=== PATIENT | female | born 1985 | race Caucasian/White ===

== ENCOUNTER 2016-12-17 13:15 | Emergency (ER) | payer MEDICAID, OTHER ==
[2016-12-17 13:27] VITALS: BP 131/59; PULSE 84; RESP 16; TEMP 97.9; O2SAT 99
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
[2016-12-17] MEDS ORDERED: IBUPROFEN 200 MG TAB PO ONE (13:48)
[2016-12-17] MEDS ORDERED: HYDROCOD/APAP 5/325 PREPACK#6 BTL TAKEHOME ONE (14:51)
== END 2016-12-17 15:07 | disposition home or self-care (01) ==
DX: S63.502A Unspecified sprain of left wrist, initial encounter (principal); J45.909 Unspecified asthma, uncomplicated; F17.200 Nicotine dependence, unspecified, uncomplicated; V18.0XXA Pedal cycle driver injured in noncollision transport accident in nontraffic accident, initial encounter; Y92.410 Unspecified street and highway as the place of occurrence of the external cause; Y99.8 Other external cause status; Y93.89 Activity, other specified
CPT/HCPCS: L3908

== ENCOUNTER 2017-06-09 14:37 | Emergency (ER) | payer MEDICAID ==
[2017-06-09 14:46] VITALS: TEMP 98.1
--- NOTE | 2017-06-09 15:18 | EDPHY ---
HPI/HX/ROS/PE/MDM Narrative: CHIEF COMPLAINT: "I can't get rid of this cough" HPI: The patient is a 31 y/o female with a history of asthma complaining of a persistent cough for the last month. She initially developed cold symptoms that led to a productive cough. She has associated episodes of post-tussive emesis and complaining of pain with breathing. She has taken Mucinex twice for this without resolution. Her symptoms are causing difficulty sleeping and she is now unable to work. She denies fever, abdominal pain, diarrhea. She is also requesting an x-ray of her left wrist due to continuing pain from an injury several months ago. REVIEW OF SYSTEMS: Aside from elements discussed in the HPI, a comprehensive 10-point review of systems was reviewed and is negative. PMH: Asthma SOCIAL HISTORY: Single. Transient. Lives in [place] Prior medical records reviewed including ED visit 12/17/16 for wrist injury. PHYSICAL EXAM: General:Patient is alert, in no acute distress. ENT:Eyes are normal to inspection. ENT inspection normal. Neck: Normal inspection. Full range of motion. Respiratory:No respiratory distress. Breath sounds normal bilaterally. Cardiovascular: Regular rate and rhythm. Strong peripheral pulses. Normal cap refill. Abdomen:The abdomen is nontender to palpation. There are no peritoneal signs. Back: Normal to inspection. No tenderness to palpation. Skin: Normal color. No rash. Warm and dry. Extremities: Normal appearance. Full range of motion. Neuro: Oriented x3. Normal motor function. Normal sensory function. ED Course: This is a transient 31 y/o female with a history of asthma who presents with a 1 -month history of a productive cough. She is well-appearing on exam and has normal breath sounds. She is afebrile here. Plan for chest x-ray and left wrist x-ray at her request. Chest x-ray shows bronchitis. Wrist x-ray shows no acute fracture. Reassessed patient and discussed work up. She will be discharged with scripts for azithromycin and albuterol for bronchitis. Referred to [facility] for follow up. Return precautions discussed. She agrees with discharge plan. - Data Points Imaging Results: Imaging Impressions Chest X-Ray 06/09/17 15:03 Impression: Prominence of perihilar interstitial markings and peribronchial cuffing. Findings are nonspecific but can be seen with bronchitis, reactive airway disease, or viral process. Wrist X-Ray 06/09/17 15:21 Impression: Normal left wrist series. Imaging: I viewed and interpreted images myself Medications Given: Discontinued Medications Albuterol Sulfate (Proventil Inh Prepack) 1 mdi BRIANA KOO ONE Stop: 06/09/17 15:44 Last Admin: 06/09/17 16:36 Dose: 1 mdi General Initial Vital Signs: Initial Vital Signs Temperature (C) 36.7 C 06/09/17 14:44 Heart Rate 87 06/09/17 14:44 Respiratory Rate 18 06/09/17 14:44 Blood Pressure 95/62 L 06/09/17 14:44 O2 Sat (%) 97 06/09/17 14:44 O2 Delivery Mode Room Air Allergies/Adverse Reactions: Penicillins Allergy (Unknown, Verified 12/17/16 13:24) Home Medications: Medication Instructions Recorded AZITHROMYCIN [Z-PACK] 250 mg PO DAILY 5 Days packet 06/09/17 Departure - Departure Disposition: Home, Routine, Self-Care Clinical Impression: Bronchitis, Left wrist pain Condition: Good Instructions: Albuterol (By breathing), Azithromycin (By mouth), Wrist Injury ( ED), Acute Bronchitis (ED) Additional Instructions: 1. Take azithromycin as prescribed. Be sure to complete the entire prescription. 2. Use albuterol inhaler as prescribed when needed for cough. 3. Take Tylenol or ibuprofen as directed on the packaging as needed for wrist pain over the next few days. 4. Follow up with your primary care provider for unimproved symptoms over the next week. 5. Return to the ED for worsening of condition. Referrals: [facility],. [Clinic] - As per Instructions Prescriptions: AZITHROMYCIN [Z-PACK] 250 mg PO DAILY 5 Days packet Report Scribed for: Ryan Willams Report Scribed by: Yen Florian Date of Report: 06/09/17 Time of Report: 15:02 Physician Review and Approval Statement: Portions of this note were transcribed by an ED scribe. I personally performed the history, physical exam, and medical decision making; and confirm the accuracy of the information in the transcribed note.
[2017-06-09] MEDS ORDERED: ALBUTEROL INH PREPACK MDI TAKEHOME ONE (15:43)
[2017-06-09 16:35] VITALS: BP 114/88; PULSE 63; RESP 16; O2SAT 99
== END 2017-06-09 16:47 | disposition home or self-care (01) ==
DX: J20.9 Acute bronchitis, unspecified (principal); M25.532 Pain in left wrist; J45.909 Unspecified asthma, uncomplicated

== ENCOUNTER 2017-06-10 09:41 | Emergency (ER) | payer MEDICAID ==
[2017-06-10 09:47] VITALS: BP 123/94; PULSE 87; RESP 16; TEMP 98.1; O2SAT 98
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
== END 2017-06-10 10:51 | disposition home or self-care (01) ==
DX: F32.9 Major depressive disorder, single episode, unspecified (principal); F17.200 Nicotine dependence, unspecified, uncomplicated

== ENCOUNTER 2017-06-18 03:17 | Emergency (ER) | payer MEDICAID ==
[2017-06-18 03:21] VITALS: TEMP 98.2
--- NOTE | 2017-06-18 03:35 | EDPHY ---
H & P Time Seen by Provider: 06/18/17 03:25 HPI/ROS: Chief Complaint: Narcotic withdrawal HPI: 31-year-old female who is addicted to opioids is presenting with withdrawal symptoms. Patient states she last used heroin 2 days ago. She has got bilateral arm and leg cramping. Some abdominal cramping. Some nausea and vomiting. No diarrhea. No chest pain or shortness of breath. No fevers or chills. Patient states she cannot sleep. She drink alcohol for the 1st time in the in the few years just to try to help her sleep. No cough. No blood or coffee-ground in her vomit. No dark tarry stools. She does not use benzodiazepines. ROS: 10 point Review of Systems is negative except as noted in the HPI. PMH: Denies Social History: Occasional smoking, rare alcohol, chronic heroin use Family History: non-contributory Physical Exam: Gen: Awake, Alert, anxious appearing HEENT: Nose: no rhinorrhea Eyes: PERRLA, EOMI Mouth: Moist mucosa Neck: Supple, no JVD Chest: nontender, lungs clear to auscultation Heart: S1, S2 normal, no murmur Abd: Soft, non-tender, no guarding Back: no CVA tenderness, no midline tenderness Ext: no edema, non-tender Skin: no rash Neuro: CN II-XII intact, Sensation grossly intact, Strength 5/5 in bilateral upper and lower extremities - Personal History LMP (Females 10-55): 8-14 Days Ago Current Tetanus Diphtheria and Acellular Pertussis (TDAP): Unsure - Medical/Surgical History Hx Asthma: Yes Hx Chronic Respiratory Disease: No Hx Diabetes: No Hx Cardiac Disease: No Hx Renal Disease: No Hx Cirrhosis: No Hx Alcoholism: No Hx HIV/AIDS: No Hx Splenectomy or Spleen Trauma: No Other PMH: depression, bi-polar, asthma, hx drug abuse - Social History Smoking Status: Current every day smoker Constitutional: Initial Vital Signs Temperature (C) 36.8 C 06/18/17 03:19 Heart Rate 81 06/18/17 03:19 Respiratory Rate 20 06/18/17 03:19 Blood Pressure 110/80 06/18/17 03:19 O2 Sat (%) 96 06/18/17 03:19 Allergies/Adverse Reactions: Penicillins Allergy (Unknown, Verified 06/10/17 09:43) Home Medications: Medication Instructions Recorded AZITHROMYCIN [Z-PACK] 250 mg PO DAILY 5 Days packet 06/09/17 Medical Decision Making ED Course/Re-evaluation: 31-year-old woman in acute narcotic withdrawal. She has not been using any benzodiazepines. Last used heroin 2 days ago. She has a benign exam. She is feeling improved after clonidine here. [facility] Center with a Librium prepack. - Data Points Medications Given: Discontinued Medications Clonidine (Catapres) 0.2 mg PO EDNOW ONE Stop: 06/18/17 03:36 Last Admin: 06/18/17 03:38 Dose: 0.2 mg Departure - Departure Disposition: Home, Routine, Self-Care Clinical Impression: Narcotic withdrawal Condition: Good Instructions: Opioid Withdrawal (ED), Chlordiazepoxide (By mouth) Referrals: DR CLAUDIA [Other] - As per Instructions
[2017-06-18] MEDS ORDERED: CHLORDIAZEPOXIDE 25MG PREPK#6 BTL TAKEHOME ONE (04:11)
[2017-06-18 04:33] VITALS: BP 124/88; PULSE 79; RESP 18; O2SAT 94
== END 2017-06-18 04:31 | disposition home or self-care (01) ==
DX: F11.23 Opioid dependence with withdrawal (principal); J45.909 Unspecified asthma, uncomplicated; F17.200 Nicotine dependence, unspecified, uncomplicated

== ENCOUNTER 2017-10-27 20:11 | Emergency (ER) | payer MEDICAID ==
[2017-10-27] MEDS ORDERED: NS 1,000 ML IV ONE (20:38)
[2017-10-27 20:45] LABS: PLATELET COUNT 251 10^3/uL (150-400)
[2017-10-27] MEDS ORDERED: KETOROLAC 30 MG/1 ML SDV IVP ONE (20:52)
[2017-10-27] MEDS ORDERED: ONDANSETRON 4 MG/2 ML VIAL IVP ONE (20:52)
--- NOTE | 2017-10-27 20:52 | EDPHY ---
HPI/HX/ROS/PE/MDM Narrative: CHIEF COMPLAINT: Diarrhea, abdominal cramping, vaginal spotting HISTORY OF PRESENT ILLNESS: The patient is a 32 y/o female with a history of tubal ligation and hepatitis c complaining of 3 days of diarrhea and abdominal pain. She used heroin for several months but stopped using 2 months ago, after her hepatitis diagnosis. While using heroin, she experienced abdominal pain which resolved after withdrawing from heroin. Since then, she has had increased vaginal spotting. She has had some abdominal cramping and diarrhea for the past 3 days. Diarrhea is accompanied by vomiting. Diarrhea is green and watery. Yesterday she had many episodes of diarrhea and vomiting but today she has only had one episode. She has associated cold sweats, frequent urination, and a dull ache in her lower back. She denies fever or any other associated symptoms. She denies any opiate use in the past 2 months, recent international travel, recent bad food, or any other precipitating causes. No fever, chest pain, shortness of breath, palpitations, urinary complaints, headache, lightheadedness. REVIEW OF SYSTEMS: Aside from elements discussed in the HPI, a comprehensive 10-point review of systems was reviewed and is negative. PAST MEDICAL HISTORY: Hepatitis C, heroin abuse, scoliosis, asthma, tubal ligation, ovarian cyst SOCIAL HISTORY: Works in a restaurant, medicaid patient, homeless VITAL SIGNS: Reviewed by me GENERAL: Well-developed, well-nourished, resting comfortably in no respiratory distress. HEENT: Atraumatic. Eyes: No icterus, no injection. Mouth: moist mucous membranes. No erythema or lesions. Neck: supple with no adenopathy. LUNGS: Clear to auscultation bilaterally, no wheezes, rhonchi or rales. CARDIAC: Regular rate and rhythm, no rubs, murmurs or gallops. ABDOMEN: Diffuse tenderness worse in right upper quadrant and left lower quadrant. No guarding or rebound. Soft, nondistended, bowel sounds normal. BACK: No CVA tenderness. EXTREMITIES: No trauma. No edema. Range of motion is normal throughout. NEURO: Alert and oriented, grossly nonfocal. SKIN: Warm and dry, no rash. PSYCHIATRIC: Normal mentation, no agitation. ED Course: The patient presents with abdominal pain, diarrhea, vomiting, and vaginal spotting. Her exam indicates diffuse abdominal tenderness, worse in lower left quadrant and upper right quadrant. Plan for CBC, basic metabolic panel, beta HCG , lipase, liver function, coag, stool pathogen analysis, and urinalysis. 21:15- Labs are not indicative of an etiology at this point. Plan for CT to further evaluate. 22:00- CT shows dilation of left uterine ovarian veins, consistent with possible pelvic congestion. Plan for ultrasound for further evaluation of etiology of symptoms. Ultrasound results demonstrate no ovarian cysts, free fluid, torsion, or other etiologies of her pelvic pain. I feel she can follow up with a primary care provider for further evaluation and treatment. She agrees to this course of action. Patient was given referral to director of annual giving on-call, Dr. Franki escamilla. She was also instructed to return to the emergency department to provide stool as soon as possible. MDM: The differential diagnosis for the patient's abdominal pain was considered including but not limited to ovarian cyst, ovarian torsion, urinary tract infection, gastroenteritis, colitis, diverticulitis. - Data Points Laboratory Results: Laboratory Results 10/27/17 20:30 10/27/17 20:30 Medications Given: Discontinued Medications Sodium Chloride (Ns) 1,000 mls @ 0 mls/hr IV EDNOW ONE; Wide Open PRN Reason: Protocol Stop: 10/27/17 20:39 Last Admin: 10/27/17 20:51 Dose: 1,000 mls Ketorolac Tromethamine (Toradol) 30 mg IVP EDNOW ONE Stop: 10/27/17 20:53 Last Admin: 10/27/17 20:56 Dose: 30 mg Ondansetron HCl (Zofran) 4 mg IVP EDNOW ONE Stop: 10/27/17 20:53 Last Admin: 10/27/17 20:56 Dose: 4 mg General Time Seen by Provider: 10/27/17 20:29 Initial Vital Signs: Initial Vital Signs Temperature (C) 36.5 C 10/27/17 20:21 Heart Rate 80 10/27/17 20:21 Respiratory Rate 18 10/27/17 20:21 Blood Pressure 115/81 H 10/27/17 20:21 O2 Sat (%) 98 10/27/17 20:21 O2 Delivery Mode Room Air Allergies/Adverse Reactions: Penicillins Allergy (Unknown, Verified 10/27/17 20:23) Home Medications: Medication Instructions Recorded NK [No Known Home Meds] 10/27/17 Departure - Departure Disposition: Home, Routine, Self-Care Clinical Impression: Vaginal spotting, Pelvic congestion syndrome Abdominal pain Qualifiers: Abdominal location: left lower quadrant Qualified Code(s): R10.32 - Left lower quadrant pain Diarrhea Qualifiers: Diarrhea type: unspecified type Qualified Code(s): R19.7 - Diarrhea, unspecified Vomiting Qualifiers: Vomiting type: unspecified Vomiting Intractability: non-intractable Nausea presence: with nausea Qualified Code(s): R11.2 - Nausea with vomiting, unspecified Condition: Good Instructions: Acute Nausea and Vomiting (ED), Acute Diarrhea (ED), Pelvic Pain in Women (ED), Abdominal Pain (ED) Additional Instructions: 1. Follow up with your primary care provider in 1 to 2 days. If you do not have a primary care provider please contact [facility] to be seen there. 2. Return to the emergency department for worsening of condition. 3. Please provide a stool sample to the lab at [facility] when you are able. 4. Your pelvic pain may be related to pelvic venous congestion. Please follow up with OBGYN. Referrals: JOE GOMEZ [Other] - As per Instructions [facility],. [Clinic] - As per Instructions Isaac Snyder MD [Medical Doctor] - As per Instructions Report Scribed for: Jyotsna Hess Report Scribed by: Radha Mclain Date of Report: 10/27/17 Time of Report: 22:19 Physician Review and Approval Statement: Portions of this note were transcribed by a medical assisting program director. I personally performed a history, physical exam, medical decision making, and confirmed accuracy of information the transcribed note.
[2017-10-27 21:08] LABS: INR 1.1 (0.83-1.16); PROTIME(PATIENT) 14.4 SEC (12.0-15.0)
[2017-10-27] MEDS ORDERED: IOPAMIDOL (ISOVUE-300) 100 ML BTL ONE (21:21)
[2017-10-28 00:07] VITALS: BP 118/73
== END 2017-10-28 00:06 | disposition home or self-care (01) ==
DX: R19.7 Diarrhea, unspecified (principal); R10.32 Left lower quadrant pain; R11.2 Nausea with vomiting, unspecified; N93.9 Abnormal uterine and vaginal bleeding, unspecified; E86.9 Volume depletion, unspecified; J45.909 Unspecified asthma, uncomplicated; Z98.51 Tubal ligation status
CPT/HCPCS: 96374; J1885; J2405; Q9967

== ENCOUNTER 2017-11-13 11:39 | Emergency (ER) | payer MEDICAID ==
[2017-11-13] MEDS ORDERED: NS 1,000 ML IV ONE ×2 (12:15→13:06)
[2017-11-13 12:32] LABS: PLATELET COUNT 259 10^3/uL (150-400)
--- NOTE | 2017-11-13 13:23 | EDPHY ---
H & P Time Seen by Provider: 11/13/17 11:48 HPI/ROS: CHIEF COMPLAINT: Vomiting HISTORY OF PRESENT ILLNESS: 32-year-old female presents to the emergency department 2-3 day history of vomiting. Patient has a history of hepatitis. She has had problems with vomiting in the past. She has no associated abdominal pain currently. Denies diarrhea. No back pain. No urinary symptoms. No fevers or chills. No chest pain or difficulty breathing. REVIEW OF SYSTEMS: Constitutional: No fever, no chills. Eyes: No double or blurry vision. ENT: No sore throat. Respiratory: No cough, no shortness of breath. Cardiac: No chest pain. Gastrointestinal: Vomiting as above. No diarrhea. No abdominal pain. Genitourinary: No dysuria. Musculoskeletal: No neck or back pain. Skin: No rashes. Neurological: No headache. Past Medical/Surgical History: Hepatitis-C, history of substance abuse Social History: Homeless Smoking Status: Heavy smoker Physical Exam: General Appearance: Alert, no distress. Normal gait. Eyes: Pupils equal and round. Extraocular motions are all intact. ENT: Mouth: Mucous membranes appears very dry. Respiratory: No wheezing, rhonchi, or rales, lungs are clear to auscultation. Cardiovascular: Regular rate and rhythm. Gastrointestinal: Abdomen is soft and nontender, no masses, no rebound or guarding, bowel sounds normal. Neurological: Alert and oriented x 3, cranial nerves II through XII grossly intact Skin: Warm and dry, no rashes. Patient has a healing small, less than 0.25 cm puncture wound to left anterior proximal thigh. She has some surrounding ecchymosis. No surrounding redness or signs of infection. Musculoskeletal: Nontender to palpate along the cervical, thoracic or lumbar spine. Neck is supple. Extremities: Full range of motion and no peripheral edema. Psychiatric: Patient is oriented X 3, there is no agitation. Constitutional: Initial Vital Signs Temperature (C) 36.5 C 11/13/17 11:44 Heart Rate 76 11/13/17 11:44 Respiratory Rate 16 11/13/17 11:44 Blood Pressure 100/71 11/13/17 11:44 O2 Sat (%) 94 11/13/17 11:44 O2 Delivery Mode Room Air Allergies/Adverse Reactions: Penicillins Allergy (Unknown, Verified 10/27/17 20:23) Home Medications: Medication Instructions Recorded NK [No Known Home Meds] 10/27/17 Medical Decision Making ED Course/Re-evaluation: The patient received 2 L of IV normal saline. She was feeling much better. She was drinking eliu traci. She was no longer feeling nauseous. She is comfortable being discharged home. Patient's abdominal exam remained benign. I do not think imaging studies are indicated. Differential Diagnosis: Including but not limited to gastritis, gastroenteritis, dehydration, electrolyte abnormality, urinary tract infection, pyelonephritis, - Data Points Laboratory Results: Laboratory Results 11/13/17 11:55 11/13/17 11:55 11/13/17 11/13/17 11:55 11:55 WBC 7.93 10^3/uL 10^3/uL (3.80-9.50) RBC 5.43 10^6/uL H 10^6/uL (4.18-5.33) Hgb 17.0 g/dL H g/dL (12.6-16.3) Hct 50.9 % H % (38.0-47.0) MCV 93.7 fL fL (81.5-99.8) MCH 31.3 pg pg (27.9-34.1) MCHC 33.4 g/dL g/dL (32.4-36.7) RDW 13.3 % % (11.5-15.2) Plt Count 259 10^3/uL 10^3/uL (150-400) MPV 9.4 fL fL (8.7-11.7) Neut % (Auto) 31.2 % L % (39.3-74.2) Lymph % (Auto) 54.0 % H % (15.0-45.0) [place] % (Auto) 8.1 % % (4.5-13.0) Eos % (Auto) 5.8 % % (0.6-7.6) Baso % (Auto) 0.8 % % (0.3-1.7) Nucleat RBC Rel Count 0.0 % % (0.0-0.2) Absolute Neuts (auto) 2.48 10^3/uL 10^3/uL (1.70-6.50) Absolute Lymphs (auto) 4.28 10^3/uL H 10^3/uL (1.00-3.00) Absolute Monos (auto) 0.64 10^3/uL 10^3/uL (0.30-0.80) Absolute Eos (auto) 0.46 10^3/uL H 10^3/uL (0.03-0.40) Absolute Basos (auto) 0.06 10^3/uL 10^3/uL (0.02-0.10) Absolute Nucleated RBC 0.00 10^3/uL 10^3/uL (0-0.01) Immature Gran % 0.1 % % (0.0-1.1) Immature Gran # 0.01 10^3/uL 10^3/uL (0.00-0.10) Sodium 140 mEq/L mEq/L (135-145) Potassium 4.4 mEq/L mEq/L (3.5-5.2) Chloride 101 mEq/L mEq/L (97-110) Carbon Dioxide 25 mEq/l mEq/l (22-31) Anion Gap 14 mEq/L mEq/L (8-16) BUN 14 mg/dL mg/dL (7-23) Creatinine 0.8 mg/dL mg/dL (0.6-1.0) Estimated GFR > 60 Glucose 82 mg/dL mg/dL (70-100) Calcium 9.1 mg/dL mg/dL (8.5-10.4) Total Bilirubin 0.8 mg/dL mg/dL (0.1-1.4) Conjugated Bilirubin 0.6 mg/dL H mg/dL (0.0-0.5) Unconjugated Bilirubin 0.2 mg/dL mg/dL (0.0-1.1) AST 73 IU/L H IU/L (14-46) ALT 70 IU/L H IU/L (9-52) Alkaline Phosphatase 69 IU/L IU/L (38-126) Total Protein 7.5 g/dL g/dL (6.3-8.2) Albumin 4.0 g/dL g/dL (3.5-5.0) Lipase 57 IU/L IU/L (23-300) Medications Given: Discontinued Medications Sodium Chloride (Ns) 1,000 mls @ 0 mls/hr IV ONCE ONE PRN Reason: Wide Open Stop: 11/13/17 12:16 Last Admin: 11/13/17 12:15 Dose: 1,000 mls Sodium Chloride (Ns) 1,000 mls @ 0 mls/hr IV ONCE ONE PRN Reason: Wide Open Stop: 11/13/17 13:07 Last Admin: 11/13/17 13:35 Dose: 1,000 mls Departure - Departure Disposition: Home, Routine, Self-Care Clinical Impression: Vomiting Qualifiers: Vomiting type: unspecified Vomiting Intractability: non-intractable Nausea presence: with nausea Qualified Code(s): R11.2 - Nausea with vomiting, unspecified Condition: Good Instructions: Acute Nausea and Vomiting (ED) Additional Instructions: Clear liquids and slowly advance diet as tolerated. You may return to work after you have not thrown up for at least 12 hr in your symptoms have completely resolved. Referrals: SELINA POLO [Other] - 1-2 days without fail Stand Alone Forms: Statement of Treatment, Work Excuse
[2017-11-13 15:02] VITALS: BP 101/60
== END 2017-11-13 15:01 | disposition home or self-care (01) ==
DX: R11.2 Nausea with vomiting, unspecified (principal); F17.200 Nicotine dependence, unspecified, uncomplicated

== ENCOUNTER 2018-01-28 11:40 | Emergency (ER) | payer MEDICAID ==
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
[2018-01-28 13:26] VITALS: BP 127/69
== END 2018-01-28 13:22 | disposition home or self-care (01) ==
DX: S93.601A Unspecified sprain of right foot, initial encounter (principal); F17.200 Nicotine dependence, unspecified, uncomplicated; V18.9XXA Unspecified pedal cyclist injured in noncollision transport accident in traffic accident, initial encounter; Y92.410 Unspecified street and highway as the place of occurrence of the external cause; Y99.8 Other external cause status; Y93.89 Activity, other specified
CPT/HCPCS: L4386

== ENCOUNTER 2018-04-30 17:05 | Emergency (ER) | payer MEDICAID ==
--- NOTE | 2018-04-30 18:05 | EDPHY ---
H & P Stated Complaint: N/V/D abdo pain for 3 days. Time Seen by Provider: 04/30/18 18:05 - Personal History LMP (Females 10-55): 1-7 Days Ago Current Tetanus Diphtheria and Acellular Pertussis (TDAP): Yes - Medical/Surgical History Hx Asthma: Yes Hx Chronic Respiratory Disease: No Hx Diabetes: No Hx Cardiac Disease: No Hx Renal Disease: No Hx Cirrhosis: No Hx Alcoholism: No Hx HIV/AIDS: No Hx Splenectomy or Spleen Trauma: No Other PMH: depression, bi-polar, asthma, hx drug abuse, TUBAL LIGATION, HEP C - Social History Smoking Status: Heavy smoker Constitutional: Initial Vital Signs Temperature (C) 36.8 C 04/30/18 17:12 Heart Rate 64 04/30/18 17:12 Respiratory Rate 16 04/30/18 17:12 Blood Pressure 103/79 04/30/18 17:12 O2 Sat (%) 99 04/30/18 17:12 O2 Delivery Mode Room Air O2 (L/minute) 2 Allergies/Adverse Reactions: Penicillins Allergy (Unknown, Verified 01/28/18 11:44) Home Medications: Medication Instructions Recorded Ibuprofen 04/30/18 Risperdal 04/30/18 Medical Decision Making ED Course/Re-evaluation: CHIEF COMPLAINT: Nausea and vomiting x 3 days HISTORY OF PRESENT ILLNESS: The patient is a 32 y/o female with a history of hepatitis C and bipolar disorder complaining of abdominal pain, nausea, vomiting, and diarrhea for 3 days. She reports that 3 days ago she had two episodes of diarrhea. After having the diarrhea she developed intermittent, lower, cramping abdominal pain accompanied with nausea and vomiting. Today she had subjective fevers, chills, and felt confused at work. Four days ago she ate sushi, which she normally does not eat. She reports that she was diagnosed with chlamydia 1 year ago and was successfully treated. No headache, chest pain, shortness of breath, urinary complaints, numbness, paresthesias. REVIEW OF SYSTEMS: A comprehensive 10 system review of systems is otherwise negative aside from elements mentioned in the history of present illness and medical decision making. PHYSICAL EXAM: HR, BP, O2 Sat, RR. Temp noted General Appearance: Alert, well hydrated, appropriate, and non-toxic appearing. Head: Atraumatic without scalp tenderness or obvious injury Eyes: Pupils equal, round, reactive to light and accommodation, EOMI, no trauma , no injection. Ears: Clear bilaterally, no perforation, normal landmarks Nose: Atraumatic, no rhinorrhea, clear. Throat: There is no erythema or exudates, no lesions, normal tonsils, mucus membranes dry. Neck: Supple, 2+ carotid upstroke, nontender, no lymphadenopathy. Respiratory: No retractions, no distress, no wheezes, and no accessory muscle use. Lungs are clear to auscultation bilaterally. Cardiovascular: Regular rate and rhythm, no murmurs, rubs, or gallops. Bilateral carotid, radial, dorsalis pedis, and posterior tibial pulses intact. Good capillary refill all extremities. Gastrointestinal: Abdomen is soft, nontender, non-distended, no masses, no rebound, no guarding, no peritoneal signs. Musculoskeletal: Normal active ROM of all extremities, atraumatic. Neurological: Alert, appropriate, and interactive. The patient has normal DTRs and non-focal cranial nerves, motor, sensory, and cerebellar exam. Skin: No rashes, good turgor, no nodules on palpation. Past medical history: Depression, bipolar, asthma, history of drug abuse, Hep C Past surgical history: Tubal ligation Family history: Denies Social history: Lives in [place], single, self-employed DIAGNOSTICS/PROCEDURES/CRITICAL CARE TIME: Not indicated. DIFFERENTIAL DIAGNOSIS: The differential diagnosis for the patient's nausea and vomiting included but was not limited to gastroenteritis, gastritis, appendicitis, and medication side effect. MEDICAL DECISION MAKING: Patient presents to the Emergency Department with vomiting and diarrhea likely secondary to infectious gastritis. Her abdominal examination is benign. IV established. Labs drawn. 2L IV NS administered. The patient received 4mg IV Zofran. 1923: I spoke with the patient's nurse who reports that the patients O2Sats dropped to the 70's and her pupils were pinpoint. It is possible that this patient took some narcotics (heroin) that her gave her. Just prior to the O2Sats dropping, the patient's boyfriend who was sweating profusely left the ED and came back. 1928: Reassessed patient as her O2Sats dropped dramatically. She reports that it has been more than 24 hours since she last used opiates, her boyfriend is currently using opiates. She is planning on obtaining housing before going to rehab. 4mg IV Narcan administered, she is now going through withdrawals. 193: Patient's nurse reports that the patient is leaving AMA after we gave her Narcan. Patient is going through heroin withdrawal. - Data Points Laboratory Results: Laboratory Results 04/30/18 18:30 04/30/18 18:30 04/30/18 04/30/18 04/30/18 18:30 18:30 18:30 WBC RBC Hgb Hct MCV MCH MCHC RDW Plt Count MPV Neut % (Auto) Lymph % (Auto) [place] % (Auto) Eos % (Auto) Baso % (Auto) Nucleat RBC Rel Count Absolute Neuts (auto) Absolute Lymphs (auto) Absolute Monos (auto) Absolute Eos (auto) Absolute Basos (auto) Absolute Nucleated RBC Immature Gran % Immature Gran # Sodium 139 mEq/L mEq/L (135-145) Potassium 4.2 mEq/L mEq/L (3.3-5.0) Chloride 100 mEq/L mEq/L (97-110) Carbon Dioxide 27 mEq/l mEq/l (22-31) Anion Gap 12 mEq/L mEq/L (6-14) BUN 22 mg/dL mg/dL (7-23) Creatinine 1.0 mg/dL mg/dL (0.6-1.0) Estimated GFR > 60 Glucose 86 mg/dL mg/dL (70-100) Calcium 9.9 mg/dL mg/dL (8.5-10.4) Total Bilirubin 0.6 mg/dL mg/dL (0.1-1.4) Conjugated Bilirubin 0.3 mg/dL mg/dL (0.0-0.5) Unconjugated Bilirubin 0.3 mg/dL mg/dL (0.0-1.1) AST 63 IU/L H IU/L (14-46) ALT 80 IU/L H IU/L (9-52) Alkaline Phosphatase 81 IU/L IU/L (38-126) Total Protein 8.4 g/dL H g/dL (6.3-8.2) Albumin 4.4 g/dL g/dL (3.5-5.0) Lipase 50 IU/L IU/L (23-300) Beta HCG, Qual NEGATIVE 04/30/18 18:30 WBC 6.87 10^3/uL 10^3/uL (3.80-9.50) RBC 4.74 10^6/uL 10^6/uL (4.18-5.33) Hgb 14.7 g/dL g/dL (12.6-16.3) Hct 43.8 % % (38.0-47.0) MCV 92.4 fL fL (81.5-99.8) MCH 31.0 pg pg (27.9-34.1) MCHC 33.6 g/dL g/dL (32.4-36.7) RDW 12.9 % % (11.5-15.2) Plt Count 223 10^3/uL 10^3/uL (150-400) MPV 8.8 fL fL (8.7-11.7) Neut % (Auto) 58.1 % % (39.3-74.2) Lymph % (Auto) 33.2 % % (15.0-45.0) [place] % (Auto) 6.4 % % (4.5-13.0) Eos % (Auto) 1.3 % % (0.6-7.6) Baso % (Auto) 0.7 % % (0.3-1.7) Nucleat RBC Rel Count 0.0 % % (0.0-0.2) Absolute Neuts (auto) 3.99 10^3/uL 10^3/uL (1.70-6.50) Absolute Lymphs (auto) 2.28 10^3/uL 10^3/uL (1.00-3.00) Absolute Monos (auto) 0.44 10^3/uL 10^3/uL (0.30-0.80) Absolute Eos (auto) 0.09 10^3/uL 10^3/uL (0.03-0.40) Absolute Basos (auto) 0.05 10^3/uL 10^3/uL (0.02-0.10) Absolute Nucleated RBC 0.00 10^3/uL 10^3/uL (0-0.01) Immature Gran % 0.3 % % (0.0-1.1) Immature Gran # 0.02 10^3/uL 10^3/uL (0.00-0.10) Sodium Potassium Chloride Carbon Dioxide Anion Gap BUN Creatinine Estimated GFR Glucose Calcium Total Bilirubin Conjugated Bilirubin Unconjugated Bilirubin AST ALT Alkaline Phosphatase Total Protein Albumin Lipase Beta HCG, Qual Medications Given: Discontinued Medications Sodium Chloride (Ns) 1,000 mls @ 0 mls/hr IV ONCE ONE PRN Reason: Wide Open Stop: 04/30/18 18:47 Last Admin: 04/30/18 18:47 Dose: 1,000 mls Ondansetron HCl (Zofran) 4 mg IVP EDNOW ONE Stop: 04/30/18 18:47 Last Admin: 04/30/18 18:48 Dose: 4 mg Departure - Departure Disposition: Against Medical Advice Clinical Impression: Acute gastroenteritis, Heroin withdrawal Condition: Good Instructions: Gastroenteritis (ED), Opioid Withdrawal (ED) Additional Instructions: 1. Increase fluid intake. 2. Take 4mg oral Zofran as needed for nausea. 3. Follow-up with your primary doctor within 72 hours. 4. Return to the Emergency Department for fever, chest pain, shortness of breath , increasing pain, or other worsening of condition. Referrals: MADY MUNROE [Other] - As per Instructions Report Scribed for: Juliano Hartman Report Scribed by: Magdalena Christianson Date of Report: 04/30/18 Time of Report: 18:36
[2018-04-30] MEDS ORDERED: ONDANSETRON 4 MG/2 ML VIAL ONE (18:45)
[2018-04-30] MEDS: NS 1,000 ML IV ONE ×3 (18:47→19:51)
[2018-04-30] MEDS: ONDANSETRON 4 MG/2 ML VIAL IVP ONE (18:48)
[2018-04-30 19:02] LABS: PLATELET COUNT 223 10^3/uL (150-400)
[2018-04-30] MEDS ORDERED: NALOXONE HCL 0.4 MG/ML INJ ONE (19:26)
[2018-04-30] MEDS: NALOXONE HCL 0.4 MG/ML INJ IVP ONE (19:38)
[2018-04-30 19:58] VITALS: BP 100/58
== END 2018-04-30 19:53 | disposition left against medical advice (07) ==
LOC: EEVIPCON 17:05
DX: K52.9 Noninfective gastroenteritis and colitis, unspecified (principal); F11.188 Opioid abuse with other opioid-induced disorder; E86.9 Volume depletion, unspecified; F31.9 Bipolar disorder, unspecified; B19.20 Unspecified viral hepatitis C without hepatic coma
CPT/HCPCS: 96374; J2310; J2405